=== PATIENT | male | born 1975 | race Hispanic/Latino ===

== ENCOUNTER 2016-10-04 11:16 | Emergency (ER) ==
[2016-10-04] MEDS ORDERED: NS 1,000 ML IV ONE (11:17)
[2016-10-04] MEDS ORDERED: ZOFRAN IV ONE (11:19)
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
--- NOTE | 2016-10-04 12:37 | Diag Imaging Result Document ---
PROCEDURE NAME: CHEST-PORTABLE - 10/04/2016 FRONTAL RADIOGRAPH OF THE CHEST: COMPARISON: None available. FINDINGS: The lungs are grossly clear. There is no discrete pleural fluid collection or pneumothorax. The cardiomediastinal silhouette and upper airway are grossly unremarkable. IMPRESSION: No evidence of acute chest pathology.
--- NOTE | 2016-10-04 12:38 | Diag Imaging Result Document ---
PROCEDURE NAME: HEAD W/O CONTRAST - 10/04/2016 CT HEAD WITHOUT CONTRAST: COMPARISON: None available. FINDINGS: There is no discrete intracranial mass, mass effect, or intracranial hemorrhage. There is no evidence of hydrocephalus. There is no evidence of acute infarct given the limited sensitivity of CT versus MRI. The surrounding soft tissues and bony structures are essentially unremarkable. IMPRESSION: No evidence of acute intracranial pathology.
[2016-10-04 12:40] LABS: URINE CULTURE NEEDED? NO; URINE MICRO REVIEW NEEDED? NO; URINE SOURCE CLEAN CATCH
[2016-10-04 12:49] LABS: BILIRUBIN URINE NEGATIVE (NEGATIVE); BLOOD URINE NEGATIVE (NEGATIVE); COLOR YELLOW; GLUCOSE URINE >1000 mg/dL (NEGATIVE); LEUKOCYTES URINE NEGATIVE (NEGATIVE); NITRITE URINE NEGATIVE (NEGATIVE); PROTEIN URINE TRACE mg/dL (NEGATIVE); SP GRAVITY URINE 1.038; TURBIDITY URINE CLEAR (CLEAR); UROBILINOGEN URINE NORMAL (NORMAL)
[2016-10-04 12:52] LABS: UR EPITHELIAL CELLS <10 /HPF (<10); URINE BACTERIA NEGATIVE /HPF; URINE RBC <10 /HPF (<10); URINE WBC <10 /HPF (<10)
[2016-10-04 12:55] LABS: ALLEN TEST YES; BE -2.5 mmoll (-3.0-3.0); BLOOD TYPE ARTERIAL; DRAW SITE R RADIAL; METHB 1.6 % (0.0-1.5); O2(CT) 18.4 mL/dL (15.0-23.0); PCO2(98.6) 39 mmHg (35-45); PO2(98.6) 76 mmHg (60-100); SAMPLE BLOOD; SAO2 98.6 % (95.0-100.0); THB 13.8 g/dL (11.5-17.4); pH(98.6) 7.37 (7.35-7.45)
[2016-10-04 12:56] LABS: BASO% 0.1 % (0.0-0.8); EOS# 0.04 X1000 (0.0-0.7); EOS% 0.3 % (0.0-10.0); HEMATOCRIT 40.3 % (42.0-52.0); HEMOGLOBIN 13.7 g/dL (14.0-18.0); IMM GRAN# 0.06 X1000 (0.0-0.04); IMM GRAN% 0.5 % (0.0-0.5); INR 0.98; LYMPH% 7.7 % (20.5-51.1); MANUAL DIFF NEEDED? NO; MCH 26.4 PG (27-31); MCV 77.6 FL (81-99); MONO% 5.1 % (1.7-9.3); MPV 11.4 FL (7.4-10.4); NEUT% 86.3 % (42.2-75.2); PLT 197 X1000 (130-400); PROTIME 10.4 Seconds (9.2-11.7); RBC 5.19 XMIL (4.7-6.1)
[2016-10-04 12:56] LABS: MODALITY ROOM AIR
[2016-10-04 13:00] LABS: AGAP 14; ALBUMIN 4.3 g/dL (3.5-5.0); ALKALINE PHOSPHATASE 125 U/L (32-122); BUN 15 mg/dL (8-22); CALCIUM 8.8 mg/dL (8.8-10.2); CHLORIDE 99 mmol/L (98-107); CK PROFILE 147 U/L (24-204); COSMO 281; GOT 16 U/L (10-34); GPT 12 U/L (10-44); POTASSIUM 4.4 mmol/L (3.5-5.1); SODIUM 134 mmol/L (136-145); TCO2 21 mmol/L (25-35); TOTAL BILIRUBIN 0.44 mg/dL (0.20-1.00); TOTAL PROTEIN 7.3 g/dL (6.3-8.3)
[2016-10-04] MEDS ORDERED: GLUCOPHAGE PO ONE (13:27)
[2016-10-04 13:40] VITALS: BP 153/85
[2016-10-04 14:05] LABS: UR AMPHETAMINES QUAL NONE DETECTED (NONE DETECT); UR BARBITUATES QUAL NONE DETECTED (NONE DETECT); UR BENZODIAZEPIN QUAL NONE DETECTED (NONE DETECT); UR CANNABINOIDS QUAL NONE DETECTED (NONE DETECT); UR COCAINE QUAL NONE DETECTED (NONE DETECT); UR METHADONE QUAL NONE DETECTED (NONE DETECT); UR OPIATES QUAL NONE DETECTED (NONE DETECT); UR OXYCODONE QUAL NONE DETECTED (NONE DETECT); UR PCP QUAL NONE DETECTED (NONE DETECT)
--- NOTE | 2016-10-05 06:12 | EKG Report ---
Test Performed on : 10/04/2016 1:06:14 PM Test Reason : AMS Blood Pressure : / mmHG Vent. Rate : 074 BPM Atrial Rate : 074 BPM P-R Int : 150 ms QRS Dur : 090 ms QT Int : 376 ms P-R-T Axes : 034 059 048 degrees QTc Int : 417 ms Normal sinus rhythm. Normal ECG No previous ECGs available Unconfirmed Result
== END 2016-10-04 14:20 | disposition home or self-care (01) ==
LOC: EDBD → ED 11:16
DX: Z04.3 Encounter for examination and observation following other accident (principal); I10 Essential (primary) hypertension; E11.9 Type 2 diabetes mellitus without complications; Z79.899 Other long term (current) drug therapy; V47.0XXA Car driver injured in collision with fixed or stationary object in nontraffic accident, initial encounter
CPT/HCPCS: 70450; 71010; 80053; 81001; 82550; 82805; 82948; 83605; 84484; 85025; 85610; 85730; 93005; G0480; 80320; 80324; 80345; 80346; 80349; 80353; 80358; 80361; 80365; 83992